=== PATIENT | female | born 1970 | race Caucasian/White ===

== ENCOUNTER 2019-02-06 12:43 | Emergency (ER) | payer BC ==
[2019-02-06 14:10] VITALS: BP 119/59
--- NOTE | 2019-02-06 14:56 | UC ---
Abdominal Pain Female HPI - HPI Summary HPI Summary: 48-year-old male who has had epigastric and left upper quadrant pain since Tuesday of last week. She states whenever she eats or drinks she has abdominal pain and a lot of gas. Denies any fever or chills. She does drink 2-3 beers per day and has for the past 3 years. Has a history of chronic back pain from back surgery. She states she had been on Vicodin for a long time years ago when she had her back surgery and she has stopped using Vicodin however states that's the reason she drinks 2-3 beers a day. - History of Current Complaint Chief Complaint: UCAbdominalPain Stated Complaint: ABDOMINAL PAIN Time Seen by Provider: 02/06/19 14:56 Hx Obtained From: Patient Hx Last Menstrual Period: iud ?: No Onset/Duration: Gradual Onset Timing: Constant Severity Initially: Mild Severity Currently: Moderate - Patient states the past 2 nights she has been awakened out of her sleep with epigastric and left upper quadrant pain. Pain Intensity: 6 Location: Discrete At: LUQ, Epigastric Radiates: Yes Radiates to: Back Character: Aching, Cramping, Sharp Aggravating Factor(s): Food Alleviating Factor(s): Nothing Associated Signs and Symptoms: Positive: Nausea Allergies/Adverse Reactions: Allergies Allergy/AdvReac Type Severity Reaction Status Date / Time oxycodone Allergy Palpitation Verified 02/06/19 14:01 s fish Allergy Severe Vomiting Uncoded 08/31/15 08:18 PMH/Surg Hx/FS Hx/Imm Hx Previously Healthy: Yes - Surgical History Surgical History: Yes Surgery Procedure, Year, and Place: back, disc replacement lower back - Family History Known Family History: Positive: Non-Contributory - Social History Alcohol Use: Daily Alcohol Amount: 1-2 beers daily- but none since sick Substance Use Type: None Smoking Status (MU): Never Smoked Tobacco - Immunization History Most Recent Influenza Vaccination: not this season Most Recent Tetanus Shot: 2011 Review of Systems All Other Systems Reviewed And Are Negative: Yes Gastrointestinal: Positive: Abdominal Pain - Epigastric and left upper quadrant abdominal pain, Nausea Is Patient Immunocompromised?: No Physical Exam Triage Information Reviewed: Yes Appearance: Well-Appearing, No Pain Distress, Well-Nourished Vital Signs: Initial Vital Signs Temp 97.5 F 02/06/19 14:02 Pulse 65 04/16/19 14:02 Resp 14 02/06/19 14:02 BP 119/59 02/06/19 14:02 Pulse Ox 100 02/06/19 14:02 Vital Signs Reviewed: Yes Eyes: Positive: Conjunctiva Clear ENT: Positive: Hearing grossly normal, Pharynx normal, TMs normal Neck exam: Normal Neck: Positive: Supple, Nontender, No Lymphadenopathy Respiratory: Positive: Lungs clear, Normal breath sounds, No respiratory distress, No accessory muscle use Cardiovascular: Positive: RRR, No Murmur, Pulses Normal, Brisk Capillary Refill Abdomen Description: Positive: No Organomegaly, Soft, Guarding - Mild guarding on palpation in the left upper quadrant, tenderness in the epigastric area and left upper quadrant.. Negative: CVA Tenderness (R), CVA Tenderness (L), Distended, Hepatomegaly, Splenomegaly Bowel Sounds: Positive: Hyperactive Musculoskeletal: Positive: Strength Intact, ROM Intact Neurological: Positive: Alert, Muscle Tone Normal Psychological Exam: Normal Skin Exam: Normal Abd Pain Female Course/Dx - Course Course Of Treatment: Patient was quite tender in the left upper quadrant and epigastric area. I feel at this time because of the limited ability here of doing a CT of the abdomen with contrast and the need for further evaluation I advised the patient that she should be evaluated in the emergency room. She is agreeable to this plan of action and will go by private car. - Differential Dx/Diagnosis Differential Diagnosis: Pancreatitis - I'm concerned because the patient's history of daily alcohol intake worsening of the abdominal pain this may actually be pancreatitis. I explained this to her and she is agreeable to going to the emergency room. Provider Diagnosis: Abdominal pain Discharge - Sign-Out/Discharge Documenting (check all that apply): Patient Departure All imaging exams completed and their final reports reviewed: No Studies - Discharge Plan Condition: Fair Disposition: HOME-RECOMMEND TO ED Referrals: No Primary Care Phys,NOPCP [Primary Care Provider] - Additional Instructions: Because the abdominal pain has been worsening over the past 2 nights and you are unable to eat or drink much food and because of the limited facilities we have at urgent care it is highly recommended that you be evaluated in the emergency room today. Not eat or drink anything until you are evaluated there. - Billing Disposition and Condition Condition: FAIR Disposition: Home-Recommend to ED
== END 2019-02-06 15:10 | disposition home health service (06) ==
LOC: UCCORT 12:43
DX: R10.9 Unspecified abdominal pain (principal); Z88.5 Allergy status to narcotic agent
CPT/HCPCS: 99212; G0463